=== PATIENT | male | born 1990 | race American Indian/Alaskan Native ===

== ENCOUNTER 2018-06-13 17:31 | Emergency (ER) | payer OTHER ==
[2018-06-14] MEDS ORDERED: TORADOL IM ONE (00:39)
[2018-06-14] MEDS ORDERED: ULTRAM PO ONE (00:40)
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
[2018-06-14 03:36] VITALS: BP 109/56
== END 2018-06-14 01:05 | disposition home or self-care (01) ==
LOC: ED 17:31
DX: S50.812A Abrasion of left forearm, initial encounter (principal); Z91.013 Allergy to seafood; V49.09XA Driver injured in collision with other motor vehicles in nontraffic accident, initial encounter; W22.11XA Striking against or struck by driver side automobile airbag, initial encounter; Y93.89 Activity, other specified; Y99.8 Other external cause status; Y92.488 Other paved roadways as the place of occurrence of the external cause
CPT/HCPCS: 96372; 99282; J1885